=== PATIENT | male | born 1960 | race Two or more races ===

== ENCOUNTER 2021-12-02 17:38 | Emergency (ER) | payer MEDICAID ==
[~2021-12-02] VITALS: Ht 172.7 cm; Wt 96.0 kg
[2021-12-02] MEDS ORDERED: ACETAMINOPHEN 325MG TABLET PO ONE (18:30)
[2021-12-02] MEDS ORDERED: KETOROLAC 60MG/2ML VIAL IM ONE (18:30)
[2021-12-02] MEDS ORDERED: KETOROLAC 30MG/ML VIAL IM NR (20:15)
[2021-12-02] MEDS ORDERED: ACETAMINOPHEN 325MG TABLET PO NR (20:15)
[2021-12-02] MEDS ORDERED: TOPUD PO (20:21)
[2021-12-02] MEDS ORDERED: MORP15TA67 MT (20:21)
[2021-12-02] MEDS ORDERED: IBUP-2028 MT (20:21)
[2021-12-03 01:15] VITALS: BP 125/86
== END 2021-12-03 01:35 | disposition home or self-care (01) ==
LOC: ER 17:38
DX: S42.201A Unspecified fracture of upper end of right humerus, initial encounter for closed fracture (principal); Y04.2XXA Assault by strike against or bumped into by another person, initial encounter; Y93.89 Activity, other specified; Y92.89 Other specified places as the place of occurrence of the external cause; Y99.8 Other external cause status
CPT/HCPCS: 73030; 73060; 96372; 99284; J1885; Z7610